=== PATIENT | female | born 1990 | race Caucasian/White ===

== ENCOUNTER 2017-10-22 20:21 | Emergency (ER) | payer BC ==
[~2017-10-22] VITALS: Ht 167.6 cm; Wt 133.9 kg
[~2017-10-22 20:21] MED LIST: FLEXERIL10 MG PO; NAPROSYN500 MG PO
[2017-10-22 21:07] LABS: ADD MIUA? YES; BILIRUBIN NEGATIVE; BLOOD NEGATIVE; COLOR YELLOW ((YELLOW)); GLUCOSE (STRIP) NEGATIVE; KETONES NEGATIVE; LEUKOCYTES TRACE; NITRITE NEGATIVE; PROTEIN (STRIP) NEGATIVE; SPECIFIC GRAVITY 1.026 (1.000-1.030)
[2017-10-22 21:18] LABS: HEMATOCRIT 38.4 % (36.0-46.0); MCHC 32.8 G/DL (30.0-36.0); MCV 94.3 FL (83-99); MEAN PLAT.VOLUME 9.2 uM^3 (9.5-12.4); PLATELET COUNT 238 K/uL (156-360); RBC DIS.WIDTH-CV 12.9 % (11.8-14.6); RBC DIS.WIDTH-SD 44.6 % (39-53); RED BLOOD COUNT 4.07 M/uL (3.80-5.20); WHITE BLOOD COUNT 9.6 K/uL (4.1-10.2)
[2017-10-22 21:18] LABS: BACTERIA NONE SEEN /HPF; EPITHELIAL CELLS 1+ /HPF; MUCUS TRACE /LPF; RED BLOOD CELLS 0-5 /HPF (0-5); UCUL ADDED? NO; WHITE BLOOD CELLS 0-5 /HPF (0-5)
[2017-10-22 21:26] LABS: CHLORIDE 105 mEq/L (99-109); POTASSIUM 3.8 mEq/L (3.7-5.4); SODIUM 138 mEq/L (136-147)
[2017-10-22 21:28] LABS: GLUCOSE 109 mg/dL (70-99)
[2017-10-22 21:30] LABS: ANION GAP 9 MEQ/L (2-14); TOTAL BILIRUBIN 0.3 mg/dL (0.0-1.0)
[2017-10-22 21:32] LABS: ALKALINE PHOSPHATASE 64 IU/L (3-129); GFR ESTIMATE (CALCULATED) > 59 mL/min/
[2017-10-22 21:33] LABS: UREA NITROGEN (BUN) 16 mg/dL (9-23)
[2017-10-22 21:36] LABS: LIPASE 19 U/L (1.0-51.0)
[2017-10-22 21:41] LABS: QUANTITATIVE HCG < 4.0 MIU/ML
[2017-10-22] MEDS ORDERED: ZOFRAN ODT4 MG PO (22:48)
[2017-10-22] MEDS ORDERED: PERCOCET 5/31 TABLET PO (22:48)
[2017-10-22 22:56] VITALS: BP 161/72
== END 2017-10-22 22:57 | disposition home or self-care (01) ==
LOC: EME 20:21
DX: R10.11 Right upper quadrant pain (principal); R11.2 Nausea with vomiting, unspecified; F17.200 Nicotine dependence, unspecified, uncomplicated; Z88.0 Allergy status to penicillin
CPT/HCPCS: 76705; 80053; 81003; 83690; 84702; 85027; 99281; 99284

== ENCOUNTER → 2017-12-05 | Outpatient (CLI) | payer BC ==
[~2017-12-05] MED LIST changes: +PERCOCET 5/31 TABLET PO; +ZOFRAN ODT4 MG PO
== END | disposition home or self-care (01) ==
LOC: NUC 11-19 10:00
DX: R10.11 Right upper quadrant pain (principal); G89.29 Other chronic pain
CPT/HCPCS: 78227; A9537; J2805